=== PATIENT | male | born 1955 | race Caucasian/White ===

== ENCOUNTER → 2020-12-24 07:46 | Outpatient (CLI) | payer BC, SELFPAY ==
[2020-12-24] MEDS: COVID-19 VACC #1, MRNA(MOD) 100 MCG/0.5 ML VIAL IM (07:52)
== END ==
PROVIDERS: Visit Provider Internal Medicine
DX: Z23 Encounter for immunization (principal)
CPT/HCPCS: 0011A; 91301

== ENCOUNTER → 2021-01-21 07:50 | Outpatient (CLI) | payer BC, SELFPAY ==
[2021-01-21] MEDS: COVID-19 VACC #2, MRNA(MOD) 100 MCG/0.5 ML VIAL IM (07:59)
== END ==
PROVIDERS: Visit Provider Internal Medicine
DX: Z23 Encounter for immunization (principal)
CPT/HCPCS: 0012A; 91301

== ENCOUNTER 2021-05-12 13:29 | Observation (INO) | payer BC, MEDICARE, SELFPAY ==
[2021-05-12] VITALS (8 sets, daily range): BP systolic 130–184; BP diastolic 72–112; PULSE 70–106; RESP 16–22; TEMP 36.1–37; O2SAT 93–100; BMI 28.0
--- NOTE | 2021-05-12 13:35 | DI.RAD.S_ITS ---
PROCEDURE: XR CHEST 1V INDICATIONS: chest pain TECHNIQUE: One view of the chest was acquired. COMPARISON: None. FINDINGS: Surgical changes and devices: None. Lungs and pleura: Lungs are clear. No pleural effusions or pneumothorax. Mediastinum: Mediastinal contours appear normal. Heart size is normal. Bones and chest wall: No suspicious bony lesions. Overlying soft tissues appear unremarkable. IMPRESSION: No acute cardiopulmonary findings Dictated by: Paulino Alexander M.D. on 05/12/2021 at 13:53 Approved by: Paulino Alexander M.D. on 05/12/2021 at 13:54
[2021-05-12 13:53] LABS: Add Manual Diff / Slide Review NO; Basophils Absolute Auto 0 /uL (0-100); Basophils Percent Auto 0.6 % (0-2); Eosinophils Absolute Auto 100 /uL (0-450); Eosinophils Percent Auto 1.3 % (2-4); Hematocrit 45.1 % (41-53); Hemoglobin 15.4 g/dL (13.5-17.5); Lymphocytes Absolute Auto 2300 /uL (1100-4500); Lymphocytes Percent Auto 31.2 % (25-40); Mean Corpuscular HGB Conc 34.1 % (30-36); Mean Corpuscular Hemoglobin 31.7 PG (26-34); Monocytes Absolute Auto 500 /uL (0-900); Monocytes Percent Auto 6.2 % (3-14); Neutrophils Absolute Auto 4600 /uL (1500-7000); Neutrophils Percent Auto 60.7 % (50-75); Platelet Count 221 X10^3/uL (150-400); Red Blood Cell Count 4.85 X10^6/uL (4.5-5.9); Red Cell Distribution Width 12.8 % (11.6-14.8); White Blood Cell Count 7.5 X10^3/uL (4.5-11.0)
[2021-05-12 14:11] LABS: Alanine Aminotransferase 32 IU/L (<50); Albumin 4.7 g/dL (3.5-5.0); Albumin Globulin Ratio 1.5 (1.0-2.8); Alkaline Phosphatase 80 U/L (38-126); Aspartate Aminotransferase 34 IU/L (17-59); BUN Creatinine Ratio 18.2 (6-22); Bilirubin Total 0.5 mg/dL (0.2-1.3); Blood Urea Nitrogen 22 mg/dL (9-20); Calcium 9.7 mg/dL (8.4-10.2); Carbon Dioxide 25 mmol/L (22-32); Chloride 107 mmol/L (98-107); Creatine Kinase 160 U/L (55-170); Globulin 3.2 g/dL (1.7-4.1); Glucose 93 mg/dL (80-110); HEMOLYSIS < 15 (0-50); Lipase 187 U/L (23-300); Sodium 141 mmol/L (137-145); Total Protein 7.9 g/dL (6.3-8.2)
[2021-05-12 14:22] LABS: Troponin I < 0.012 ng/mL (0.01-0.034)
[2021-05-12 14:26] LABS: CKMB % Relative Index 1.8 % (1.5-5.0)
--- NOTE | 2021-05-12 16:15 | ED_ITS ---
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 On May 06 he describes an episode of central left chest pain that he initially felt was possibly heartburn or indigestion. Was diaphoretic and short of breath with this in that lasted approximately 20 minutes and was not associated with exercise at onset. He had a similar episode on the that was a bit more severe lasted a bit longer and then similar episodes on the and that were not as bad. On the and he was asymptomatic and today around noon had a similar feeling. With some of these episodes he noticed that his heart seemed like it was beating faster and more irregularly but that was not a defining symptom of which he complains. He notes no headaches, abdominal pain, nausea, vomiting, acute neurologic findings. Related Data Allergies Allergy/AdvReac Type Severity Reaction Status Date / Time penicillin G Allergy Severe ANAPHYLAXIS Verified 05/12/21 13:38 Review of Systems Review of Systems Narrative: Remainder of complete review of systems is otherwise unremarkable except for that included in the HPI. Patient History Medical History Paris's thyroiditis Hypertension Social History Smoking Status: Never smoker Smoking Status: Never smoker alcohol intake frequency: a few times a month Substance Use Type: does not use Exam Narrative Exam Narrative: General: Healthy appearing, in no acute distress. Able to give a complete and coherent history. Well-nourished well-developed HEENT: Moist mucous membranes, normal sclera with reactive pupils, Neck: No JVD, supple Respiratory: Lungs are clear to auscultation, no wheezing no rales no rhonchi. Full and symmetrical air movement Cardiac: Regular rate and rhythm no murmurs no bruits Abdomen: Soft, nontender, good bowel tones, no flank pain Skin: Warm and dry, no rashes Neurologic: Grossly neurologically intact with no obvious asymmetries or abnormalities Extremities: No trauma, well perfused, no lower extremity edema Psych: Cooperative, appropriate insight and affect Initial Vital Signs Initial Vital Signs: Vital Signs Temperature 98.6 F 05/12/21 13:30 Pulse Rate 103 H 05/12/21 13:30 Respiratory Rate 20 05/12/21 13:30 Blood Pressure 184/108 H 05/12/21 13:30 Pulse Oximetry 99 05/12/21 13:30 Course Orders Ordered: ED Orders 05/12/21 13:35 XR chest 1V Stat EKG-12 Lead Stat 05/12/21 13:44 Complete Blood Count AUTO DIFF Stat Comprehensive Metabolic Panel Stat Lipase Stat Troponin & CK Cardiac Panel Stat Discontinued Medications Metoprolol Tartrate (Metoprolol Ir 25 Mg Tablet) 50 mg PO NOW ONE Stop: 05/12/21 16:26 Vital Signs Vital signs: Vital Signs - 8 hr 05/12/21 13:30 05/12/21 14:22 05/12/21 15:09 Temperature 98.6 F Pulse Rate 103 H 106 H 105 H Respiratory Rate 20 20 22 Blood Pressure 184/108 H 167/97 H 152/94 H Pulse Oximetry 99 100 98 05/12/21 15:44 Temperature Pulse Rate 90 Respiratory Rate 20 Blood Pressure 148/99 H Pulse Oximetry 98 MDM - Arrhythmia/Palpitations Medical Records Attestation: I reviewed the patient's medical records. Lab Data Attestation: I reviewed the patient's lab results. Result diagrams: 05/12/21 13:44 05/12/21 13:44 Labs: Lab Results 05/12/21 05/12/21 Range/Units 13:44 13:44 WBC 7.5 (4.5-11.0) X10^3/uL RBC 4.85 (4.5-5.9) X10^6/uL Hgb 15.4 (13.5-17.5) g/dL Hct 45.1 (41-53) % MCV 93.0 (80-100) fL MCH 31.7 (26-34) PG MCHC 34.1 (30-36) % RDW 12.8 (11.6-14.8) % Plt Count 221 (150-400) X10^3/uL Neut % (Auto) 60.7 (50-75) % Lymph % (Auto) 31.2 (25-40) % [place] % (Auto) 6.2 (3-14) % Eos % (Auto) 1.3 L (2-4) % Baso % (Auto) 0.6 (0-2) % Neut # (Auto) 4600 (9631-2261) /uL Lymph # (Auto) 2300 (2937-1693) /uL [place] # (Auto) 500 (0-900) /uL Eos # (Auto) 100 (0-450) /uL Baso # (Auto) 0 (0-100) /uL Sodium 141 (137-145) mmol/L Potassium 4.0 (3.4-5.1) mmol/L Chloride 107 (98-107) mmol/L Carbon Dioxide 25 (22-32) mmol/L BUN 22 H (9-20) mg/dL Creatinine 1.21 (0.66-1.25) mg/dL Estimated GFR 60.0 (>60) mL/min BUN/Creatinine Ratio 18.2 (6-22) Glucose 93 (80-110) mg/dL Calcium 9.7 (8.4-10.2) mg/dL Total Bilirubin 0.5 (0.2-1.3) mg/dL AST 34 (17-59) IU/L ALT 32 (<50) IU/L Alkaline Phosphatase 80 (38-126) U/L Total Creatine Kinase 160 (55-170) U/L CK-MB (CK-2) 2.80 H (<2.37) ng/mL CK-MB (CK-2) Rel Index 1.8 (1.5-5.0) % Troponin I < 0.012 (0.01-0.034) ng/mL Total Protein 7.9 (6.3-8.2) g/dL Albumin 4.7 (3.5-5.0) g/dL Globulin 3.2 (1.7-4.1) g/dL Albumin/Globulin Ratio 1.5 (1.0-2.8) Lipase 187 (23-300) U/L Imaging Data Chest x-ray: Radiologist's Impresson: FINDINGS: Surgical changes and devices: None. Lungs and pleura: Lungs are clear. No pleural effusions or pneumothorax. Mediastinum: Mediastinal contours appear normal. Heart size is normal. Bones and chest wall: No suspicious bony lesions. Overlying soft tissues appear unremarkable. IMPRESSION: No acute cardiopulmonary findings Dictated by: Paulino Alexander M.D. on 05/12/2021 at 13:53 ECG Data Attestation: I personally reviewed and interpreted this ECG as follows: Interpretation: Atrial fibrillation at a rate of 100 No acute ischemic changes MDM Narrative Medical decision making narrative: Otherwise healthy 65-year-old gentleman presents with new onset atrial fibrillation that was essentially discovered when he presented noting that he had had a couple of days with intermittent chest pain. Initial workup is reassuring with no evidence of congestive heart failure or acute coronary syndrome. At this time, the chest pain complaints do sound concerning however there are no acute ischemic changes appreciated and troponin is normal suggesting no acute coronary syndrome. Will review management options with Dr. Wood was his primary care physician and also on-call to admit him. I believe observation with serial enzymes stress testing tomorrow beginning anticoagulation and rate controlling his AFib would be the best course of action Care is reviewed with both Dr. Lou and the patient. Both are amenable to plan as outlined above. He will be given 50 mg of oral metoprolol here in the emergency department and Dr. Wood will take care of the rest of the orders once he has moved up the . Questions are answered and he is safe for transfer to the floor. COVID test will be done. Discharge Plan Departure Patient Disposition: Admitted as Observation Clinical Impression: Atrial fibrillation Qualifiers: Atrial fibrillation type: unspecified Qualified Code(s): I48.91 - Unspecified atrial fibrillation Chest pain Qualifiers: Chest pain type: unspecified Qualified Code(s): R07.9 - Chest pain, unspecified
[2021-05-12] MEDS: METOPROLOL IR 25 MG TABLET 50 MG PO (16:33)
--- NOTE | 2021-05-12 17:31 | PM.HP.1 ---
History of Present Illness History of Present Illness Date Patient Seen: 05/12/21 Time Patient Seen: 17:31 Chief complaint: Check to See if Poss Heart Attack Narrative: 65-year-old male presents from the ER with new onset atrial fibrillation and chest pain. Six days prior to presentation, was working outside on a project when he felt a pain in his abdomen and left chest that radiated to his back. Associated shortness of breath and diaphoresis. Symptoms lasted for approximately 20 minutes and he thought that he should go home because he was not feeling very well, then, it suddenly stopped and he went back to work. Shortly after returning to work, symptoms restarted so he drove himself home and began to feel better. Denies that he was drinking alcohol. Weather was not hot. No undue stress. For the following 3 days, had similar episodes that came and went. For the last 2 days, he has been asymptomatic but today at around noon, he started having the same feelings of chest pain, shortness of breath, and diaphoresis. He was sent to the ED from the clinic with these symptoms. 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 No headache, abdominal pain, nausea, vomiting, or acute neurological findings. No peripheral edema. He has not taken any medication for this. Very rare alcohol use, every 3-4 months. Vital signs upon presentation to the ED included temperature 98.6?, pulse 103, respirations 20, blood pressure 184/108, O2 saturation 99% on room air. Workup was essentially unremarkable except for EKG which showed atrial fibrillation with a ventricular rate of 100 beats per minute. Cardiac enzymes notably negative. Administered metoprolol 50 mg p.o. x1 prior to transfer to the floor. No sign of clinical heart failure. Past Medical History: Paris's thyroiditis Hypertension Hyperlipidemia GERD Arthritis Overweight Past Surgical History: Appendectomy (1988) Left ankle (08/2005) Left ankle (12/2005) Left medial meniscus surgery Family History: Thyroid disease, no cardiac issues. 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 No illicit drug use. Patient History Medical History Paris's thyroiditis Hypertension Family & Social History Safety & Behavioral: Feels Safe in Current Yes Environment Tobacco & Substance use: Smoking Status Never smoker alcohol intake frequency a few times a month Substance Use Type does not use Meds Home Medications and Allergies Home Medications Medication Instructions Recorded Confirmed Type levothyroxine [Synthroid] 112 mcg PO DAILY 05/12/21 05/12/21 History Allergies Allergy/AdvReac Type Severity Reaction Status Date / Time penicillin G Allergy Severe ANAPHYLAXIS Verified 05/12/21 13:38 Review of Systems Review of Systems ROS: Yes All systems reviewed with the patient and are negative except as otherwise documented Exam Vital Signs (past 8 hours): - 05/12/21 13:30 05/12/21 14:22 05/12/21 15:09 Temperature 98.6 F Pulse Rate 103 H 106 H 105 H Respiratory Rate 20 20 22 Blood Pressure 184/108 H 167/97 H 152/94 H Pulse Oximetry 99 100 98 05/12/21 15:44 05/12/21 16:33 Temperature Pulse Rate 90 103 H Respiratory Rate 20 16 Blood Pressure 148/99 H 158/84 H Pulse Oximetry 98 98 Oxygen Delivery Method Room Air Narrative Exam Narrative: GENERAL: Alert and oriented, appearing stated age and in no acute distress. HEENT: Head normocephalic/atraumatic. Pupils equal, round, and reactive to light and accomodation. Extraocular muscles intact. Tympanic membranes clear. Nasal mucosa moist, septum midline. Oral mucosa moist, no lesions. Neck soft and supple, no lymphadenopathy. LUNGS: Clear to ausculation bilaterally, no wheezes, rhonchi or rales. CV: Irregularly irregular, no audible murmurs, rubs or gallops. ABDOMEN: Soft, non-tender, non-distended, no organomegaly. Positive bowel sounds. EXTREMITIES: No clubbing, cyanosis, or edema. NEURO: Cranial nerves II through XII grossly intact, no focal deficits. PSYCH: Alert and oriented x 3. SKIN: No concerning lesions. Objective Labs Result Diagrams: 05/12/21 13:44 05/12/21 13:44 Labs: Laboratory Results - last 24 hr 05/12/21 05/12/21 13:44 13:44 WBC 7.5 RBC 4.85 Hgb 15.4 Hct 45.1 MCV 93.0 MCH 31.7 MCHC 34.1 RDW 12.8 Plt Count 221 Neut % (Auto) 60.7 Lymph % (Auto) 31.2 [place] % (Auto) 6.2 Eos % (Auto) 1.3 L Baso % (Auto) 0.6 Neut # (Auto) 4600 Lymph # (Auto) 2300 [place] # (Auto) 500 Eos # (Auto) 100 Baso # (Auto) 0 Sodium 141 Potassium 4.0 Chloride 107 Carbon Dioxide 25 BUN 22 H Creatinine 1.21 Estimated GFR 60.0 BUN/Creatinine Ratio 18.2 Glucose 93 Calcium 9.7 Total Bilirubin 0.5 AST 34 ALT 32 Alkaline Phosphatase 80 Total Creatine Kinase 160 CK-MB (CK-2) 2.80 H CK-MB (CK-2) Rel Index 1.8 Troponin I < 0.012 Total Protein 7.9 Albumin 4.7 Globulin 3.2 Albumin/Globulin Ratio 1.5 Lipase 187 Assessment & Plan Assessment & Plan narrative: 1. New onset atrial fibrillation, likely paroxysmal, with rapid ventricular rate Plan: Patient was given metoprolol 50 mg p.o. x1 in the ED with improvement in both blood pressure and rate, he is now feeling much better with a cessation of his chest pain and shortness of breath. Will continue to monitor him overnight and continue rate control with metoprolol 50 mg p.o. q.day in the morning, if appropriate. Will also check echo in the morning as well as stress test to rule out an ischemic event. Opal for anticoagulation. Plan for referral to Cardiology in the outpatient setting for possible cardioversion, event monitor prior. 2. Chest pain, acute, rule out MS Plan: Serial cardiac enzymes, stress test, nitro prn, telemetry. 3. Paris's thyroiditis, chronic Plan: Continue home levothyroxine. 4. Hypertension, chronic Plan: Please see #1. 5. Hyperlipidemia, chronic Plan: ASCVD risk score 17.2% based on 04/19/2021 outpatient fasting lipid panel. Patient has declined statin in the past. Will initiate atorvastatin 20 mg p.o. q.h.s. in the hospital to reduce risk factors. 6. Overweight, chronic Plan: Nutrition consult as outpatient, will advise DASH/low-cholesterol/low-calorie diet and exercise 30 minutes most days of the week. Code: Full COVID: Negative DVT prophylaxis: Xarelto, SCDs Disposition: Anticipate 2 nights.
--- NOTE | 2021-05-12 17:38 | DI.ECHO.S_ITS ---
[place] [facility]---------+ [facility] +---------+ : : [id number] : : : : [place] : : : : [id number] : : : : Phone: [phone] Echocardiogram Report + + :Name: DEE LEVY Study Date: 05/13/2021 Height: 76 in : :[facility] ReadingLocation: Weight: 230 lb : : Gender: Male BSA: 2.4 m2 : :: 1955 Age: 65 yrs BP: 142/107 mmHg: :Reason For Study: Atrial fibrillation : :Ordering Physician: TYRESE, : :AZUCENA Performed By: Mike Patton : :Referring: AZUCENA XIONG : + + Interpretation Summary Left ventricular systolic function is normal. The ejection fraction is estimated to be 60-65%. Both atria are normal in size. There is no significant valvular heart disease. Procedure: A two-dimensional transthoracic echocardiogram with color flow and Doppler was performed. The study quality was technically adequate. There is no prior echocardiogram noted for this patient. The patient was in atrial fibrillation with heart rates between 65-95 bpm during the exam. Left Ventricle: The left ventricle is normal in size and wall thickness. Left ventricular systolic function is normal. The ejection fraction is estimated to be 60-65%. There are no focal wall motion abnormalities. Diastolic function could not be accurately assessed due to atrial fibrillation. Right Ventricle: The right ventricle is normal in size and function. Atria: Both atria are normal in size. There is no Doppler evidence for an interatrial shunt. Mitral Valve: The mitral valve is normal in structure and function. There is trace mitral regurgitation. Aortic Valve: The aortic valve is normal in structure and function. No aortic regurgitation is present. Tricuspid Valve: The tricuspid valve is normal in structure and function. There is a trace or physiologic amount of tricuspid regurgitation. Pulmonary artery pressures cannot be estimated because of the lack of a measurable TR jet velocity but the IVC suggests a CVP of around 3 mmHg. Pulmonic Valve: The pulmonic valve is not well visualized. There is no pulmonic valvular regurgitation. Great Vessels: The aortic root is normal size. The dimensions of the ascending aorta are normal. The IVC is of normal diameter and collapses greater than 50% with a sniff. This suggests a low right atrial pressure of 3 mm Hg. Pericardium/ Pleura There is no pericardial effusion. There is no pleural effusion. MMode/2D Measurements & Calculations LVIDd: 4.5 cm LVOT diam: 2.4 cm LVIDs: 3.0 cm Ao root diam: 3.6 cm FS: 32.1 % asc Aorta Diam: 3.5 cm IVSd: 1.1 cm LVPWd: 1.0 cm LV king. diameter/BSA (cm/m^2): 1.9 LV sys. diameter/BSA (cm/m^2): 1.3 LA A2 area: 26.5 cm2 RA long axis: 5.5 cm LA A4 area: 18.7 cm2 RA area: 19.6 cm2 LA length (vol): 5.7 cm RA vol: 59.5 ml LA vol: 73.4 ml RA : 25.3 ml/m2 LA vol index: 31.2 ml/m2 TAPSE: 2.8 cm Doppler Measurements & Calculations Ao V2 max: 85.0 cm/sec LVOT Max Edward: 80.6 cm/sec Ao V2 mean: 64.0 cm/sec LV V1 max P.6 mmHg Ao max P.9 mmHg LV V1 VTI: 16.5 cm Ao mean P.8 mmHg SUKHDEV(I,D): 4.6 cm2 Ao V2 VTI: 15.8 cm SUKHDEV(V,D): 4.2 cm2 sev ratio: 1.0 SUKHDEV indexed to BSA (cm^2/m^2): 1.9 PA V2 max: 66.0 cm/sec SV(LVOT): 72.3 ml PA V2 mean: 51.5 cm/sec PA mean P.1 mmHg PA pr(Accel): 37.9 mmHg Reading Physician:12:50 PM
[2021-05-12 18:12] LABS: COVID19 - ADMIT (NP swab/PCR) Negative (Negative)
[2021-05-12 20:17] LABS: Troponin I < 0.012 ng/mL (0.01-0.034)
[2021-05-12] MEDS: ATORVASTATIN 20 MG TABLET PO (23:26)
[2021-05-13 02:29] LABS: Troponin I < 0.012 ng/mL (0.01-0.034)
--- NOTE | 2021-05-13 03:09 | PC.NURSE ---
Gave patient his atorvastatin at my shift start. Printed out info on side effects as asked. and patient informed me that patient can not take levothyroxine, but has to have synthroid instead. will bring in home medication this morning. Patient is NPO at this time for perfusion scan scheduled today, no time listed. Made NPO at 0300, in case test is early. Patient and know med from home will need to checked by pharmacy.
[2021-05-13 05:03] VITALS: BP 117/76; PULSE 65; RESP 16; TEMP 36.6; O2SAT 97
[2021-05-13 05:07] LABS: Add Manual Diff / Slide Review NO; Basophils Absolute Auto 0 /uL (0-100); Basophils Percent Auto 0.5 % (0-2); Eosinophils Absolute Auto 200 /uL (0-450); Eosinophils Percent Auto 2.3 % (2-4); Hematocrit 43.8 % (41-53); Hemoglobin 14.7 g/dL (13.5-17.5); Lymphocytes Absolute Auto 2300 /uL (1100-4500); Lymphocytes Percent Auto 31.4 % (25-40); Mean Corpuscular HGB Conc 33.5 % (30-36); Mean Corpuscular Hemoglobin 31.2 PG (26-34); Monocytes Absolute Auto 500 /uL (0-900); Monocytes Percent Auto 7.4 % (3-14); Neutrophils Absolute Auto 4200 /uL (1500-7000); Neutrophils Percent Auto 58.4 % (50-75); Platelet Count 206 X10^3/uL (150-400); Red Blood Cell Count 4.71 X10^6/uL (4.5-5.9); Red Cell Distribution Width 12.9 % (11.6-14.8); White Blood Cell Count 7.2 X10^3/uL (4.5-11.0)
[2021-05-13 05:08] LABS: Blood Urea Nitrogen 24 mg/dL (9-20); Calcium 8.9 mg/dL (8.4-10.2); Carbon Dioxide 27 mmol/L (22-32); Chloride 107 mmol/L (98-107); Estimated Glomerular Filt Rate > 60.0 mL/min (>60); Glucose 102 mg/dL (80-110); HEMOLYSIS 15 (0-50); Phosphorous 3.6 mg/dL (2.3-3.7); Potassium 3.8 mmol/L (3.4-5.1); Sodium 139 mmol/L (137-145)
[2021-05-13 05:54] LABS: Thyroid Stimulating Hormone 4.21 uIU/mL (0.47-4.68)
[2021-05-13 08:16] VITALS: BP 142/107; PULSE 76; RESP 12; TEMP 36.2; O2SAT 98
--- NOTE | 2021-05-13 08:52 | PM.DS.1 ---
History of Present Illness History of Present Illness Date Patient Seen: 05/13/21 Time Patient Seen: 08:52 Chief complaint: Check to See if Poss Heart Attack Narrative: 65-year-old male presents from the ER with new onset atrial fibrillation and chest pain. Six days prior to presentation, was working outside on a project when he felt a pain in his abdomen and left chest that radiated to his back. Associated shortness of breath and diaphoresis. Symptoms lasted for approximately 20 minutes and he thought that he should go home because he was not feeling very well, then, it suddenly stopped and he went back to work. Shortly after returning to work, symptoms restarted so he drove himself home and began to feel better. Denies that he was drinking alcohol. Weather was not hot. No undue stress. For the following 3 days, had similar episodes that came and went. For the last 2 days, he has been asymptomatic but today at around noon, he started having the same feelings of chest pain, shortness of breath, and diaphoresis. He was sent to the ED from the clinic with these symptoms. 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 No headache, abdominal pain, nausea, vomiting, or acute neurological findings. No peripheral edema. He has not taken any medication for this. Very rare alcohol use, every 3-4 months. Vital signs upon presentation to the ED included temperature 98.6?, pulse 103, respirations 20, blood pressure 184/108, O2 saturation 99% on room air. Workup was essentially unremarkable except for EKG which showed atrial fibrillation with a ventricular rate of 100 beats per minute. Cardiac enzymes notably negative. Administered metoprolol 50 mg p.o. x1 prior to transfer to the floor. No sign of clinical heart failure. Past Medical History: Paris's thyroiditis Hypertension Hyperlipidemia GERD Arthritis Overweight Past Surgical History: Appendectomy (1988) Left ankle (08/2005) Left ankle (12/2005) Left medial meniscus surgery Family History: Thyroid disease, no cardiac issues. 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 No illicit drug use. Discharge Providers Provider Date of admission: 05/12/21 16:34 Discharge Date: 05/13/21 Primary care physician: Rhoda Wood MD Consults: 05/12/21 17:43 Consult to Discharge Planning Routine Comment: Discharge provider: Rhoda oWod MD Summary Hospital Course Discharge Diagnosis: 1. New onset atrial fibrillation, likely paroxysmal, with rapid ventricular rate 2. Chest pain, acute, resolved 3. Paris's thyroiditis, chronic 4. Hypertension, chronic 5. Hyperlipidemia, chronic 6. Overweight, chronic Hospital Course: Patient had an uneventful night/day. Patient has not spontaneously converted but has had no further chest pain or shortness of breath after metoprolol, rate has been controlled. Cardiac enzymes negative x 3. Echo showed an ejection fraction of 60-65% with no significant valvular disease and normal atria. Stress test low risk. On day of discharge, he is afebrile with stable vital signs throughout. Plan to follow up in 1 week, referral to cardiologyshawna. Exam Vital Signs (past 8 hours): - 05/13/21 05:03 05/13/21 08:16 Temperature 97.8 F 97.2 F L Pulse Rate 65 76 Respiratory Rate 16 12 Blood Pressure 117/76 142/107 H Pulse Oximetry 97 98 Oxygen Delivery Method Room Air Oxygen Flow Rate 0 Narrative Exam Narrative: GENERAL: Alert and oriented, appearing stated age and in no acute distress. HEENT: Head normocephalic/atraumatic. Pupils equal, round, and reactive to light and accomodation. Extraocular muscles intact. Tympanic membranes clear. Nasal mucosa moist, septum midline. Oral mucosa moist, no lesions. Neck soft and supple, no lymphadenopathy. LUNGS: Clear to ausculation bilaterally, no wheezes, rhonchi or rales. CV: Irregularly irregular, no audible murmurs, rubs or gallops. ABDOMEN: Soft, non-tender, non-distended, no organomegaly. Positive bowel sounds. EXTREMITIES: No clubbing, cyanosis, or edema. NEURO: Cranial nerves II through XII grossly intact, no focal deficits. PSYCH: Alert and oriented x 3. SKIN: No concerning lesions. Objective Labs Result Diagrams: 05/13/21 04:38 05/13/21 04:38 Labs: Laboratory Results - last 24 hr 05/12/21 05/12/21 05/12/21 13:44 13:44 16:35 WBC 7.5 RBC 4.85 Hgb 15.4 Hct 45.1 MCV 93.0 MCH 31.7 MCHC 34.1 RDW 12.8 Plt Count 221 Neut % (Auto) 60.7 Lymph % (Auto) 31.2 Dodge % (Auto) 6.2 Eos % (Auto) 1.3 L Baso % (Auto) 0.6 Neut # (Auto) 4600 Lymph # (Auto) 2300 Dodge # (Auto) 500 Eos # (Auto) 100 Baso # (Auto) 0 Sodium 141 Potassium 4.0 Chloride 107 Carbon Dioxide 25 BUN 22 H Creatinine 1.21 Estimated GFR 60.0 BUN/Creatinine Ratio 18.2 Glucose 93 Calcium 9.7 Phosphorus Magnesium Total Bilirubin 0.5 AST 34 ALT 32 Alkaline Phosphatase 80 Total Creatine Kinase 160 CK-MB (CK-2) 2.80 H CK-MB (CK-2) Rel Index 1.8 Troponin I < 0.012 Total Protein 7.9 Albumin 4.7 Globulin 3.2 Albumin/Globulin Ratio 1.5 Lipase 187 TSH SARS-CoV-2 (PCR) Negative 05/12/21 05/13/21 05/13/21 19:01 01:45 04:38 WBC RBC Hgb Hct MCV MCH MCHC RDW Plt Count Neut % (Auto) Lymph % (Auto) Dodge % (Auto) Eos % (Auto) Baso % (Auto) Neut # (Auto) Lymph # (Auto) Dodge # (Auto) Eos # (Auto) Baso # (Auto) Sodium 139 Potassium 3.8 Chloride 107 Carbon Dioxide 27 BUN 24 H Creatinine 1.09 Estimated GFR > 60.0 BUN/Creatinine Ratio 22.0 Glucose 102 Calcium 8.9 Phosphorus 3.6 Magnesium 2.0 Total Bilirubin AST ALT Alkaline Phosphatase Total Creatine Kinase CK-MB (CK-2) CK-MB (CK-2) Rel Index Troponin I < 0.012 < 0.012 Total Protein Albumin Globulin Albumin/Globulin Ratio Lipase TSH SARS-CoV-2 (PCR) 05/13/21 05/13/21 04:38 04:38 WBC 7.2 RBC 4.71 Hgb 14.7 Hct 43.8 MCV 93.0 MCH 31.2 MCHC 33.5 RDW 12.9 Plt Count 206 Neut % (Auto) 58.4 Lymph % (Auto) 31.4 Dodge % (Auto) 7.4 Eos % (Auto) 2.3 Baso % (Auto) 0.5 Neut # (Auto) 4200 Lymph # (Auto) 2300 Dodge # (Auto) 500 Eos # (Auto) 200 Baso # (Auto) 0 Sodium Potassium Chloride Carbon Dioxide BUN Creatinine Estimated GFR BUN/Creatinine Ratio Glucose Calcium Phosphorus Magnesium Total Bilirubin AST ALT Alkaline Phosphatase Total Creatine Kinase CK-MB (CK-2) CK-MB (CK-2) Rel Index Troponin I Total Protein Albumin Globulin Albumin/Globulin Ratio Lipase TSH 4.21 SARS-CoV-2 (PCR) PFSH Medical History Paris's thyroiditis Hypertension Social History household members: spouse Smoking Status: Never smoker alcohol intake: current Discharge Plan Discharge Plan Patient Disposition: Home Discharge orders & Medications Prescriptions: New atorvastatin [Lipitor] 20 mg Tablet 20 mg PO BEDTIME Qty: 90 RF: 3 nitroglycerin [Nitrostat] 0.4 mg Tablet, Sublingual 0.4 mg sublingual [id number] PRN (Reason: Chest Pain) Qty: 15 RF: 3 Xarelto 10 mg Tablet 20 mg PO DAILY Qty: 90 RF: 3 metoprolol succinate 25 mg tablet extended release 24 hr 25 mg PO DAILY Qty: 60 RF: 3 Continued levothyroxine [Synthroid] 112 mcg tablet 112 mcg PO DAILY RF: 0 Follow up/Referrals: Rhoda Wood MD [Primary Care Provider] - Diet/Activity/Treatments Diet: Low-sodium Activity: As tolerated Skin/Wound/Dressing Care Report to your healthcare provider any signs of infection, such as:: chills, fever and increased pain Visit Report/Discharge Packet Instructions: Echocardiogram, Cardiac Stress Test, Myocardial Perfusion Imaging, Atorvastatin, Nitroglycerin Sublingual, Rivaroxaban, Metoprolol Discharge Data Primary Care Provider: Rhoda Wood Attending Provider: Rhoda Wood
[2021-05-13] MEDS: SODIUM CHLORIDE 0.9% FLUSH 10 ML IV (09:35)
[2021-05-13] MEDS: RIVAROXABAN 10 MG TABLET 20 MG PO (09:41)
[2021-05-13 12:24] VITALS: BP 136/76; PULSE 85; RESP 14; TEMP 36.4; O2SAT 99
--- NOTE | 2021-05-13 12:31 | CM.IDA ---
Initial DCP Assessment Note Pt is a 65 yo male, resident of [place], arrives via EMS, presents from the ER with new onset atrial fibrillation and chest pain, admitted observation for echo and stress test to r/o CA PCP: Rhoda Wood Payer: [place]/ANDREAS Reviewed chart, met w/patient and spouse to introduce role. Upon this DIRECTOR ELECTRICAL ENGINEERING's visit, Patient NPO awaiting his stress test to be scheduled. patient and spouse expect no needs from this DIRECTOR ELECTRICAL ENGINEERING. patient is indp and active. No needs expected from DC planning team although will remain available in case this changes today. LIANNE Fishman Discharge Planning/Care Management CM Discharge Assessment Start: 05/13/21 12:24 Freq: Status: Active Protocol: Document 05/13/21 12:25 TIGIST (Rec: 05/13/21 12:31 TIGIST [id number]) Discharge Planning Assessment Assigned Wire Harness Assembler LIANNE Coronado DPOA/Assigned Designee Name Aida Velez, spouse Contact Information [phone] Advance Directives? No History Provided By Patient Prior Living Arrangements House Household Members spouse Type of transportation used prior to Drives own vehicle admit Independent with ADL's Yes Is patient alert and oriented? Yes Barriers to Discharge No Comment Awaiting w/u, stress test Discharge Plan Home Transportation Arrangement Family Referrals Initiated None needed Whiteboard Updated in Patient Room with Yes name and ext. # of Wire Harness Assembler
--- NOTE | 2021-05-13 12:59 | PC.NURSE ---
Day shift: Pt off unit for cardiac stress test at approx 1240.
--- NOTE | 2021-05-13 13:22 | PM.TREADMILL ---
Cardiac Stress Test Report Referral & Results Date Patient Seen: 05/13/21 Time Patient Seen: 13:22 Requesting provider: Rhoda Wood Indication: chest pain Rest ECG: Atrial fibrillation Procedure Note: Standard Bandar protocol, 7:40, 10.1 METS Good exercise capacity, LEONARD -1% Normal hemodynamic response to exercise No chest pain or anginal symptoms No significant ST changes at peak exercise Occasional couplets, PVCs Impression: Normal exercise stress test Please note: Actual ECG tracings can be found in the PACS system.
--- NOTE | 2021-05-13 14:30 | PC.NURSE ---
Day shift: Pt back on AC unit at approx 1420. He stated I feel fine. Gave Pt turkey sandwich, ice water and apple juice. NO c/o pain, nausea or lightheadedness. Call light in reach.
--- NOTE | 2021-05-13 14:36 | PC.NURSE ---
Day shift: Pt back on tele at approx 1430.
[2021-05-13 14:58] VITALS: BP 137/101; PULSE 84; RESP 18; TEMP 36.4; O2SAT 100
[2021-05-13 15:10] VITALS: BP 139/78; PULSE 92; RESP 22; TEMP 36.3; O2SAT 97
[2021-05-13 17:45] VITALS: BP 136/108; PULSE 88
[2021-05-13] MEDS: METOPROLOL ER 25 MG TABLET PO (17:45)
--- NOTE | 2021-05-13 19:21 | PC.NURSE ---
Discharge Note Patient A&O, VSS, RA, no complaints of chest pain or shortness of breath. Discharge packet reviewed with patient and , all questions/concerns addressed. TELE/PIV discontinued. Patient able to dress self independently. Patient reminded to brick picker prescriptions from preferred pharmacy on way home. All patient belongings and discharge packet given to patient and . Patient taken down to personal POV.
--- NOTE | 2021-05-17 18:10 | DI.NM.S_ITS ---
DATE OF SERVICE: 05/13/2021 PROCEDURE: Exercise perfusion study. INDICATION: Chest pain with underlying AFib, hypertension, hyperlipidemia. RADIOPHARMACEUTICAL: 25.2 millicurie technetium-99m Myoview IV was injected at stress and 25.4 millicurie technetium-99m Myoview IV was injected at rest. CARDIAC STRESS: The patient underwent exercise perfusion study under the supervision of an attending staff. The patient walked on Bandar protocol for 7 minutes and achieved 126 percent of target heart rate. Baseline blood pressure 140/92 mmHg. Peak blood pressure 168/94 mmHg. Achieved 10.1 METs of workload and functional aerobic impairment -1 percent. The patient felt fatigue, but no anginal symptoms. Baseline rhythm was atrial fibrillation. During stress, there were no convincing ischemic changes. The patient has intermittent PVCs without any sustained ventricular tachycardia. RAW DATA: There is increased subdiaphragmatic activity. There is a bowel loop affecting the inferior border of the heart. GATED STUDY: Stress LV ejection fraction 71 percent without any obvious wall motion abnormalities. Resting end-diastolic volume 108 mL. TID ratio 1.08, which is within normal limits. Lung/heart ratio 0.33, which is within normal limits. MYOCARDIAL PERFUSION: Stress supine, resting supine and stress prone images were compared to each other. Stress supine and resting supine images revealed large size, moderate to severely decreased perfusion of inferior wall extending into the inferoapex and inferoseptum, which got significantly improved during prone images. However, prone images remaining have mildly decreased perfusion of distal inferior wall and distal inferoseptum. No reversible ischemia. CONCLUSION: I will call this study likely a normal myocardial perfusion study with significant perfusion defect due to gut shadow involving the inferior border inferior border of the heart, as stated above, which got significantly improved during the stress prone images. The inferior wall is moving well which goes against the diagnosis of previous transmural myocardial infarction. There is no obvious reversible ischemia. Good exercise capacity. LEONARD -1 percent. Normal hemodynamic response. Mildly hypertensive at baseline. The patient has baseline atrial fibrillation. As far as perfusion scan is concerned, this is a low-risk myocardial perfusion scan. There was enhanced chronotropic response. Tomas Velez - Laila/jerod doc#: [id number]/job#: [id number] dd: 05/17/2021 16:59:00 dt: 05/17/2021 17:24:00 DICTATING MD/COPIES TO: Connie Naqvi MD COPIES MNE: VERONIKA;
== END 2021-05-13 18:00 | disposition home or self-care (01) ==
LOC: ED 16:32 → AC 16:34
PROVIDERS: Admitting Provider Student in an Organized Health Care Education/Training Program; Emergency Provider Emergency Medicine; PCP Student in an Organized Health Care Education/Training Program; Referring Provider Emergency Medicine; Visit Provider Student in an Organized Health Care Education/Training Program
DX: I48.91 Unspecified atrial fibrillation (principal); E06.3 Autoimmune thyroiditis; I10 Essential (primary) hypertension; E78.5 Hyperlipidemia, unspecified; Z20.822 Contact with and (suspected) exposure to COVID-19; E66.3 Overweight
CPT/HCPCS: 36415; 71045; 78452; 80048; 80053; 82550; 82553; 83690; 83735; 84100; 84443; 84484; 85025; 87635; 93005; 93010; 93017; 93306; 99284; C9803; G0378; A9502

== ENCOUNTER → 2022-02-01 06:32 | Outpatient (CLI) | payer BC, MEDICARE, SELFPAY ==
[2021-05-12 16:58] VITALS: BMI 28.0
--- NOTE | 2022-02-01 | DI.MRI.S_ITS ---
PROCEDURE: MR KNEE RT WO CON INDICATIONS: RIGHT KNEE PAIN AND SWELLING TECHNIQUE: Noncontrast sagittal PD fast spin echo and T2 fast spin echo with fat saturation, sagittal 3-D FLASH with fat saturation; coronal T1 spin echo and PD fast spin echo with fat saturation, and axial PD fast spin echo with fat saturation through the knee. COMPARISON: [facility], MR, KNEE WITHOUT CONTRAST, 11/08/2012, 7:34. FINDINGS: Image quality: Excellent. Menisci: Complex oblique tear involving posterior horn of medial meniscus is seen extending to both superior and inferior articulating surfaces. Peripheral displacement of medial meniscus is noted bowing medial collateral ligament. There is signal abnormality involving posterior horn of lateral meniscus extending to inferior articulating surface suggestive of focal oblique tear. The meniscal root ligaments appear intact. Cruciate ligaments: Degenerative changes within anterior cruciate ligament is seen. No ACL rupture. PCL is intact. Medial structures: There is low-grade MCL sprain. The posterior oblique ligament, semimembranosus tendon insertions, oblique popliteal ligament, and meniscocapsular junction appear intact. Visualized portions of the pes anserinus tendons appear normal. No abnormal bursal fluid. Lateral structures: The lateral collateral ligament, long and short heads of the biceps femoris tendon appear intact. The popliteus tendon appears normal; the popliteofibular ligament appears intact. The posterosuperior and anteroinferior popliteomeniscal fascicles appear intact. The arcuate and fabellofibular ligaments appear intact, on either side of the lateral inferior geniculate artery. Iliotibial band appears normal. Anterior structures: Distal quadriceps tendinosis and proximal patellar tendinosis at their patellar insertions are seen. Patellar alignment is normal. No femoral trochlear dysplasia or ventral trochlear prominence. No edema in the infrapatellar fat pad. Bones and cartilage: No bone marrow contusions or fractures. 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 Joint space: There is moderate amount of joint fluid. No Fiore's cyst. Normal appearing synovial plicae are incidentally noted. IMPRESSION: 1. Complex tear involving posterior horn of medial meniscus extending to both superior and inferior articulating surfaces. Subtle oblique tear involving posterior horn of lateral meniscus extending to inferior articulating surface. 2. Degenerative changes within anterior cruciate ligament. No full-thickness ACL rupture. PCL is intact. 3. Low-grade MCL sprain. 4. Distal quadriceps and proximal patellar tendinosis at their patellar insertions. No tendon rupture. 5. 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 Dictated by: Michael Rogers M.D. on 02/01/2022 at 8:17 Approved by: Michael Rogers M.D. on 02/01/2022 at 8:30
== END ==
PROVIDERS: PCP Student in an Organized Health Care Education/Training Program; Referring Provider Orthopaedic Surgery Sports Medicine; Visit Provider Orthopaedic Surgery Sports Medicine
DX: S83.231A Complex tear of medial meniscus, current injury, right knee, initial encounter (principal); S83.281A Other tear of lateral meniscus, current injury, right knee, initial encounter; S83.411A Sprain of medial collateral ligament of right knee, initial encounter; M17.11 Unilateral primary osteoarthritis, right knee; M94.261 Chondromalacia, right knee
CPT/HCPCS: 73721

== ENCOUNTER → 2022-09-08 09:05 | Outpatient (CLI) | payer BC, MEDICARE, SELFPAY ==
[2021-05-12 16:58] VITALS: BMI 28.0
[2022-09-08 10:08] LABS: Alanine Aminotransferase 21 IU/L (<50); Albumin 4.3 g/dL (3.5-5.0); Albumin Globulin Ratio 1.3 (1.0-2.8); Alkaline Phosphatase 77 U/L (38-126); Aspartate Aminotransferase 25 IU/L (17-59); BUN Creatinine Ratio 17.7 (6-22); Bilirubin Total 0.7 mg/dL (0.2-1.3); Blood Urea Nitrogen 20 mg/dL (9-20); Calcium 8.9 mg/dL (8.4-10.2); Carbon Dioxide 27 mmol/L (22-32); Chloride 104 mmol/L (98-107); Estimated Glomerular Filt Rate > 60 mL/min (>60); Globulin 3.3 g/dL (1.7-4.1); Glucose 96 mg/dL (80-110); HEMOLYSIS < 15 (0-50); Potassium 4.5 mmol/L (3.4-5.1); Sodium 141 mmol/L (137-145); Total Protein 7.6 g/dL (6.3-8.2)
== END ==
PROVIDERS: PCP Student in an Organized Health Care Education/Training Program; Referring Provider Physician Assistant; Visit Provider Physician Assistant
DX: I48.91 Unspecified atrial fibrillation (principal)
CPT/HCPCS: 36415; 80053

== ENCOUNTER → 2022-10-05 08:38 | Outpatient (CLI) | payer BC, MEDICARE, SELFPAY ==
[2021-05-12 16:58] VITALS: BMI 28.0
[2022-10-05 10:44] LABS: Add Manual Diff / Slide Review NO; Basophils Absolute Auto 100 /uL (0-100); Basophils Percent Auto 0.9 % (0-2); Eosinophils Absolute Auto 100 /uL (0-450); Eosinophils Percent Auto 1.6 % (2-4); Hematocrit 43.1 % (41-53); Hemoglobin 14.7 g/dL (13.5-17.5); Lymphocytes Absolute Auto 2200 /uL (1100-4500); Lymphocytes Percent Auto 33.1 % (25-40); Mean Corpuscular HGB Conc 34.1 % (30-36); Mean Corpuscular Volume 93.9 fL (80-100); Monocytes Absolute Auto 400 /uL (0-900); Monocytes Percent Auto 6.2 % (3-14); Neutrophils Absolute Auto 3800 /uL (1500-7000); Neutrophils Percent Auto 58.2 % (50-75); Platelet Count 189 X10^3/uL (150-400); Red Blood Cell Count 4.59 X10^6/uL (4.5-5.9); Red Cell Distribution Width 12.9 % (11.6-14.8); White Blood Cell Count 6.5 X10^3/uL (4.5-11.0)
[2022-10-05 10:47] LABS: Hemoglobin A1C% w Est Avg Glu 5.6 % (4.0-6.0)
[2022-10-05 10:49] LABS: Cholesterol 214 mg/dL (140-199); HDL Cholesterol 42 mg/dL (40-60); LDL Cholesterol Calculated 136 mg/dL (<100); Triglycerides 180 mg/dL (35-150)
[2022-10-05 11:23] LABS: Prostate Specific Antigen Scrn 1.49 ng/mL (0.1-4.0)
[2022-10-05 11:32] LABS: TSH w/ Reflex to FT4 2.16 uIU/mL (0.47-4.68)
== END ==
PROVIDERS: PCP Student in an Organized Health Care Education/Training Program; Referring Provider Family Medicine; Visit Provider Family Medicine
DX: Z00.00 Encounter for general adult medical examination without abnormal findings (principal); E03.9 Hypothyroidism, unspecified; E06.3 Autoimmune thyroiditis; E78.5 Hyperlipidemia, unspecified; I10 Essential (primary) hypertension
CPT/HCPCS: 36415; 80061; 83036; 84443; 85025; G0103

== ENCOUNTER → 2022-12-29 14:42 | Outpatient (CLI) | payer BC, MEDICARE, SELFPAY ==
[2021-05-12 16:58] VITALS: BMI 28.0
--- NOTE | 2022-12-29 | DI.US.S_ITS ---
PROCEDURE: US PERIPH VENOUS LOW EXTREM LT INDICATIONS: KNEE PAIN AND KNEE EFFUSION TECHNIQUE: Real-time imaging, as well as color and pulse Doppler interrogation, were performed of the lower extremity deep veins from the inguinal ligament to the popliteal fossa. COMPARISON: None. FINDINGS: The common femoral, femoral and popliteal veins are normally compressible, and free of intraluminal thrombus. Color and pulse Doppler demonstrate normal phasic intraluminal flow. There is normal augmentation response to distal compression maneuver. IMPRESSION: No evidence of deep venous thrombosis, left lower extremity. Incidental popliteal cyst 7.7 x 1.9 x 3.7 cm Approved by: Paulino Alexander M.D. on 12/29/2022 at 14:55
== END ==
PROVIDERS: PCP Family Medicine; Referring Provider Family Medicine; Visit Provider Family Medicine
DX: M25.562 Pain in left knee (principal); M25.462 Effusion, left knee; M71.22 Synovial cyst of popliteal space [Baker], left knee
CPT/HCPCS: 93971

== ENCOUNTER → 2023-03-31 07:30 | Outpatient (CLI) | payer BC, MEDICARE, SELFPAY ==
[2021-05-12 16:58] VITALS: BMI 28.0
[2023-03-31 09:06] LABS: BUN Creatinine Ratio 11.2 (6-22); Blood Urea Nitrogen 13 mg/dL (9-20); Calcium 8.9 mg/dL (8.4-10.2); Carbon Dioxide 30 mmol/L (22-32); Chloride 101 mmol/L (98-107); Estimated Glomerular Filt Rate > 60 mL/min (>60); Glucose 90 mg/dL (80-110); HEMOLYSIS < 15 (0-50); Potassium 4.5 mmol/L (3.4-5.1); Sodium 139 mmol/L (137-145)
== END ==
PROVIDERS: PCP Family Medicine; Referring Provider Internal Medicine Cardiovascular Disease; Visit Provider Internal Medicine Cardiovascular Disease
DX: I48.0 Paroxysmal atrial fibrillation (principal)
CPT/HCPCS: 36415; 80048

== ENCOUNTER → 2023-04-09 07:30 | Outpatient (CLI) | payer BC, MEDICARE, SELFPAY ==
[2021-05-12 16:58] VITALS: BMI 28.0
[2023-04-09 08:49] LABS: Add Manual Diff / Slide Review NO; Basophils Absolute Auto 0 /uL (0-100); Basophils Percent Auto 0.4 % (0-2); Eosinophils Absolute Auto 100 /uL (0-450); Eosinophils Percent Auto 1.1 % (2-4); Hematocrit 42.8 % (41-53); Hemoglobin 14.7 g/dL (13.5-17.5); Lymphocytes Absolute Auto 2200 /uL (1100-4500); Lymphocytes Percent Auto 32.8 % (25-40); Mean Corpuscular HGB Conc 34.5 % (30-36); Mean Corpuscular Hemoglobin 32.2 PG (26-34); Mean Corpuscular Volume 93.4 fL (80-100); Monocytes Absolute Auto 500 /uL (0-900); Monocytes Percent Auto 7.3 % (3-14); Neutrophils Absolute Auto 3900 /uL (1500-7000); Neutrophils Percent Auto 58.4 % (50-75); Platelet Count 202 X10^3/uL (150-400); Red Blood Cell Count 4.58 X10^6/uL (4.5-5.9); Red Cell Distribution Width 12.7 % (11.6-14.8); White Blood Cell Count 6.7 X10^3/uL (4.5-11.0)
[2023-04-09 09:23] LABS: Blood Urea Nitrogen 16 mg/dL (9-20); Calcium 9.2 mg/dL (8.4-10.2); Carbon Dioxide 29 mmol/L (22-32); Chloride 103 mmol/L (98-107); Estimated Glomerular Filt Rate > 60 mL/min (>60); Glucose 99 mg/dL (80-110); HEMOLYSIS < 15 (0-50); Potassium 4.8 mmol/L (3.4-5.1); Sodium 139 mmol/L (137-145)
== END ==
PROVIDERS: PCP Family Medicine; Referring Provider Internal Medicine Cardiovascular Disease; Visit Provider Internal Medicine Cardiovascular Disease
DX: I48.0 Paroxysmal atrial fibrillation (principal)
CPT/HCPCS: 36415; 80048; 85025

== ENCOUNTER 2023-04-25 10:55 | Emergency (ER) | payer BC, MEDICARE, SELFPAY ==
[2021-05-12 16:58] VITALS: BMI 28.0
[2023-04-25 10:57] VITALS: BP 184/98; PULSE 55; RESP 15; TEMP 36.3; O2SAT 99; BMI 28.0
--- NOTE | 2023-04-25 11:23 | ED.ALLEREA ---
HPI - Allergic Reaction <RITO Ruiz - Last Filed: 04/25/23 12:24> General Chief complaint: Allergic Reaction Stated complaint: allergic reaction Time Seen by Provider: 04/25/23 11:11 Source: patient Mode of arrival: Ambulatory History of Present Illness HPI narrative: This is a 67-year-old gentleman presents to the emergency department 2 weeks status post cardiac ablation for atrial fibrillation, he is anticoagulated on Xarelto, states that he was prescribed pantoprazole for 2 weeks and took his 1st dose this morning with his other medications, states that immediately afterwards he had flushing of his face, torso, upper arms and broke out in a rash that he describes as hives and states it was itchy. States they took a Benadryl and all of these symptoms resolved. He denies any shortness of breath, throat scratchiness, swelling of his mouth, throat, a cough, any facial edema, or any other symptoms. Denies any chest pain, tachycardia, weakness, vision changes, or lightheadedness. Denies any vomiting. Patient takes levothyroxine, metoprolol, was prescribed pantoprazole for 30 days, started it today and is taking his Xarelto. As far as he knows he states that he is still in sinus rhythm. Related Data Home Medications Medication Instructions Recorded Confirmed levothyroxine 112 mcg tablet 112 mcg PO DAILY 05/12/21 05/12/21 (Synthroid) Previous Rx's Medication Instructions Recorded atorvastatin 20 mg tablet (Lipitor) 20 mg PO BEDTIME #90 tabs 05/13/21 metoprolol succinate 25 mg 25 mg PO DAILY #60 tabs 05/13/21 tablet,extended release 24 hr nitroglycerin 0.4 mg sublingual 0.4 mg sublingual [id number] PRN 05/13/21 tablet (Nitrostat) Chest Pain #15 tabs rivaroxaban 10 mg tablet (Xarelto) 20 mg PO DAILY #90 tabs 05/13/21 omeprazole 40 mg capsule,delayed 40 mg PO DAILY #30 caps 04/25/23 release sucralfate 1 gram tablet (Carafate) 1 g PO TID PRN stomach pain #90 04/25/23 tabs Allergies Allergy/AdvReac Type Severity Reaction Status Date / Time penicillin G Allergy Severe ANAPHYLAXIS Verified 04/25/23 10:57 Review of Systems <RITO Ruiz - Last Filed: 04/25/23 12:24> Review of Systems ROS Unobtainable: All systems reviewed & are unremarkable except as noted in HPI and below Patient History <RITO Ruiz - Last Filed: 04/25/23 12:24> Medical History Paris's thyroiditis Hypertension Social History household members: spouse Smoking Status: Never smoker alcohol intake: current Smoking Status: Never smoker alcohol intake frequency: holidays/special occasions only Substance Use Type: does not use Exam <RITO Ruiz - Last Filed: 04/25/23 12:24> Narrative Exam Narrative: Reviewed vitals signs and nursing notes. General: Pleasant, sitting upright, in no acute distress, well groomed, afebrile HEENT: symmetrical facial expressions, moist mucous membranes, neck is supple no or pharynx edema, lips are not swollen no stridor CV: regular rate and rhythm mild bradycardia with a rate of 53-58, warm extremities, no edema or fever Respiratory: normal work of breathing, without tachypnea or hypoxia. Breath sounds are clear throughout all field GI: abdomen soft, nondistended, without CVA tenderness bilaterally. MSK: moves all extremities, no weakness, normal tone, ambulatory without deficit Skin: brisk capillary refill, without rash or wound, no highs, chest, face, neck without erythema, or evidence of a rash. Neuro: clear speech and normal cognition, A&O x3, GCS 15, no focal motor or sensation deficits Initial Vital Signs Initial Vital Signs: Vital Signs Temperature 97.3 F L 04/25/23 10:57 Pulse Rate 55 L 04/25/23 10:57 Respiratory Rate 15 04/25/23 10:57 Blood Pressure 184/98 H 04/25/23 10:57 Pulse Oximetry 99 04/25/23 10:57 Oxygen Delivery Method Room Air 04/25/23 10:57 <Radha Sanford DO - Last Filed: 04/25/23 19:39> Initial Vital Signs Initial Vital Signs: Vital Signs Temperature 97.3 F L 04/25/23 10:57 Pulse Rate 55 L 04/25/23 10:57 Respiratory Rate 15 04/25/23 10:57 Blood Pressure 184/98 H 04/25/23 10:57 Pulse Oximetry 99 04/25/23 10:57 Oxygen Delivery Method Room Air 04/25/23 10:57 Course <RITO Ruiz - Last Filed: 04/25/23 12:24> Vital Signs Vital signs: Vital Signs - 8 hr 04/25/23 11:32 Pulse Rate 53 L Blood Pressure 173/92 H Pulse Oximetry 98 Oxygen Delivery Method Room Air <Radha Sanford DO - Last Filed: 04/25/23 19:39> Vital Signs Vital signs: Vital Signs - 8 hr 04/25/23 11:32 Pulse Rate 53 L Blood Pressure 173/92 H Pulse Oximetry 98 Oxygen Delivery Method Room Air MDM - Allergic Reaction <RITO Ruiz - Last Filed: 04/25/23 12:24> MDM Narrative Medical decision making narrative: Chief Complaint: Allergic reaction Primary historian: Patient Multiple etiologies for patient's complaint considered including, but not limited to: I have independently reviewed the patient's vital signs and nursing notes as well as prior records if available. Patient presents with symptoms consistent with an acute hypersensitivity reaction likely medication reaction to pantoprazole. This was his 1st dose, he has not taken this in the past. His presentation is not consistent with anaphylaxis, angioedema, fever, shock or airway compromise. Patient's symptoms improved with a dose of Benadryl that he took at home. No need for epinephrine. Discussed repeat doses of Benadryl in the future if needed and will abstain from pantoprazole, prescribed omeprazole 40 mg daily for 30 days, and Carafate. Discussed trying omeprazole and taking it at a different time than other medications 1st thing in the morning on an empty stomach. If this causes a negative reaction, patient can take Carafate instead or discontinue the PPI altogether. Discussed H2 blockers and what those are if he would like to attempt trial of this. He denies any epigastric pain, does not have history of GI bleeding. This is preventative and we discussed risks versus benefit. Social considerations that may affect disposition: none Questions are addressed and there is agreement with the plan and for follow-up. I consulted with the ED attending physician Dr. Sanford as needed for higher level of care considerations and they were available for discussion and recommendations regarding plan of care and diagnostic testing. Patient is appropriate for outpatient management. Discharge Plan Departure Patient Disposition: Home Clinical Impression: Medication reaction Qualifiers: Encounter type: initial encounter Qualified Code(s): T50.905A - Adverse effect of unspecified drugs, medicaments and biological substances, initial encounter Instructions: DI for Adverse Drug Reaction -- Allergic Activity Restrictions/Additional Instructions: *You have been diagnosed with a medication reaction. Please discontinue pantoprazole, start omeprazole, take this 1st thing in the morning daily and Carafate as needed to coat your stomach. Please do not take Carafate and levothyroxine at the same time. Try to space out your levothyroxine from your Xarelto, from your omeprazole and Carafate. I know that is tedious but it will help them absorb and do the best job. I wish you the best, is a pleasure to meet you, thank you for coming in today. Please take Benadryl as needed for hives and or itching if they return. Please come back if you have throat scratchy numbness, lip swelling or tongue swelling, shortness of breath or chest pain. Your heart sounds like it is in sinus rhythm today. *What to do: *Please continue to take your regular medications as directed. [x ] New medication prescriptions sent to your pharmacy: [ [facility]] [ ] New medication written as a paper prescription [ ] No new medications given *Please call and schedule follow up with your primary care provider in 2-3 days, at least for an update. Let them know you were seen in the Emergency Department for the above problem. We will electronically transmit a record of today's note if your PCP or specialist is in our system. *If you do not have a primary care provider please contact [phone] to establish care with one of the [facility] primary care providers. *Return to the Emergency Department for worsening symptoms, inability to keep liquids down, fever greater than 101F, chills, or other concerning symptom. Prescriptions: New omeprazole 40 mg capsule,delayed release(DR/EC) 40 mg PO DAILY Qty: 30 0RF sucralfate [Carafate] 1 gram tablet 1 g PO TID PRN (Reason: stomach pain) Qty: 90 0RF No Action levothyroxine [Synthroid] 112 mcg tablet 112 mcg PO DAILY Patient Comments: TAKE ONE TABLET BY MOUTH ONE TIME DAILY atorvastatin [Lipitor] 20 mg Tablet 20 mg PO BEDTIME Qty: 90 3RF nitroglycerin [Nitrostat] 0.4 mg Tablet, Sublingual 0.4 mg sublingual [id number] PRN (Reason: Chest Pain) Qty: 15 3RF Xarelto 10 mg Tablet 20 mg PO DAILY Qty: 90 3RF metoprolol succinate 25 mg tablet extended release 24 hr 25 mg PO DAILY Qty: 60 3RF Referrals: Antonio Coombs MD [Primary Care Provider] - Stand Alone Forms: Patient Portal/API <Radha Sanford DO - Last Filed: 04/25/23 19:39> Cosign ED Attending Jonathan Attestation: I was immediately available in the department for consultation, case was not discussed with myself. Documentation has been reviewed.
[2023-04-25 11:32] VITALS: BP 173/92; PULSE 53; O2SAT 98
--- NOTE | 2023-04-25 11:35 | PC.NURSE ---
Pts sx resolved prior to arrival in ED. Pt was experiencing tingling/redness in face with hives on torso. Pt took benadryl PO,pt in no distress at triage.
== END 2023-04-25 11:32 | disposition home or self-care (01) ==
PROVIDERS: Emergency Provider Nurse Practitioner Critical Care Medicine; PCP Family Medicine
DX: L50.9 Urticaria, unspecified (principal); T47.1X5A Adverse effect of other antacids and anti-gastric-secretion drugs, initial encounter
CPT/HCPCS: 99281

== ENCOUNTER → 2024-03-21 12:08 | Outpatient (CLI) | payer BC, MEDICARE, SELFPAY ==
[2021-05-12 16:58] VITALS: BMI 28.0
--- NOTE | 2024-03-21 | DI.MRI.S_ITS ---
PROCEDURE: MR LUMBAR SPINE WO CON INDICATIONS: RADICULOPATHY, LUMBAR REGION TECHNIQUE: Noncontrast sagittal T1 spin echo and T2 fast echo, sagittal STIR, and T2 fast spin echo through the lumbar spine. In cases with scoliosis, additional coronal T2 fast spin echo may be performed. COMPARISON: None. FINDINGS: Image quality: Excellent. Alignment and Curvature: There is normal bony alignment. Bone Marrow: Marrow is of normal overall signal. No acute vertebral body compression fractures. Spinal Cord: Conus medullaris terminates at the L1 level. Visualized cord demonstrates normal signal and size. Paraspinous Soft Tissues: No paravertebral masses. T12-L1: Mild loss of disc height is seen. Loss of disc signal is seen. Mild generalized disc bulge is seen. Mild facet joint hypertrophy is seen. Mild bilateral neural foraminal narrowing is seen. Minimal central canal narrowing is seen. L1-L2: The disc height is well-preserved. Loss of disc signal is seen at this level. Mild to moderate disc bulge is seen. There is a superimposed central disc protrusion. Mild facet joint hypertrophy is seen. Moderate bilateral neural foraminal narrowing is seen. Mild central canal narrowing is seen. L2-L3: Mild loss of disc height is seen. Loss of disc signal is seen. Reactive marrow endplate changes are seen posteriorly, which are hyperintense on T1-weighted and T2-weighted imaging and most consistent with fatty metaplasia (Modic type II changes). Mild to moderate disc bulge is seen, with a mild central disc protrusion. Moderate facet joint hypertrophy is seen. Moderate central canal narrowing is seen. L3-L4: Mild loss of disc height is seen. Loss of disc signal is seen. Moderate generalized disc bulge is seen. There is a superimposed central disc protrusion. Moderate facet joint hypertrophy is seen. Moderate bilateral neural foraminal narrowing is seen. Mild central canal narrowing is seen. L4-L5: At least moderate loss of disc height and disc signal can be seen. Reactive marrow endplate changes are seen, which are hyperintense on T1-weighted and T2-weighted imaging and most consistent with fatty metaplasia (Modic type II changes). At least moderate disc bulge is seen, which is eccentric to the right. There is moderate right-sided and mild left-sided facet hypertrophy. There is at least moderate left-sided and moderate to severe right-sided neural foraminal narrowing seen. There is a degree of compression seen upon the exiting nerve roots. Mild central canal narrowing is seen. L5-S1: At least moderate loss of disc height and disc signal can be seen. Mild to moderate disc bulge is seen. Mild facet joint hypertrophy is seen. Mild bilateral neural foraminal narrowing is seen. Minimal central canal narrowing is seen. IMPRESSION: Multiple levels of lumbar spine degenerative change can be seen, which are overall worst at the L4-L5 level. Dictated by: Landen Briseno M.D. on 03/21/2024 at 14:27 Approved by: Landen Briseno M.D. on 03/21/2024 at 14:30
== END ==
PROVIDERS: PCP Family Medicine; Referring Provider Orthopaedic Surgery Orthopaedic Surgery of the Spine; Visit Provider Orthopaedic Surgery Orthopaedic Surgery of the Spine
DX: M47.26 Other spondylosis with radiculopathy, lumbar region (principal); M47.27 Other spondylosis with radiculopathy, lumbosacral region; M51.16 Intervertebral disc disorders with radiculopathy, lumbar region; M51.17 Intervertebral disc disorders with radiculopathy, lumbosacral region; M48.061 Spinal stenosis, lumbar region without neurogenic claudication; M48.07 Spinal stenosis, lumbosacral region
CPT/HCPCS: 72148